=== PATIENT | female | born 1985 | race Two or more races ===

== ENCOUNTER 2021-05-09 01:43 | Emergency (ER) | payer OTHER ==
[2021-05-09 02:07] VITALS: BP 109/74; PULSE 66; RESP 17; TEMP 98.5
--- NOTE | 2021-05-09 02:31 | ED ---
Recheck HPI - General Chief Complaint: Recheck/Abnormal Lab/Rx Stated Complaint: Covid test Source: patient, RN notes reviewed, old records reviewed Mode of arrival: ambulatory Limitations: no limitations - History of Present Illness Initial Comments: This patient presents today for evaluation in regards with need for coronavirus testing. Patient needs coronavirus testing to return to [facility]. Patient presents patient's manic without complaint. No significant medical history MD Complaint: other (Coronavirus testing) -: minutes(s) Returns Today for: request for prescription Symptoms Since Prior Visit: no new symptoms Context: planned re-check Associated Symptoms: none Treatments Prior to Arrival: other (none) - Related Data Allergies Allergy/AdvReac Type Severity Reaction Status Date / Time No Known Allergies Allergy Verified 05/09/21 02:07 Review of Systems ROS Statement: Those systems with pertinent positive or pertinent negative responses have been documented in the HPI. ROS Other: All systems not noted in ROS Statement are negative. Past Medical History Past Medical History: No Reported History History of Any Multi-Drug Resistant Organisms: None Reported Past Surgical History: No Surgical Hx Reported Past Psychological History: No Psychological Hx Reported Smoking Status: Never smoker Past Alcohol Use History: None Reported Past Drug Use History: None Reported General Exam General appearance: alert, in no apparent distress Head exam: Present: atraumatic, normocephalic, normal inspection Eye exam: Present: normal appearance, PERRL, EOMI. Absent: scleral icterus, conjunctival injection, periorbital swelling ENT exam: Present: normal exam, mucous membranes moist Neck exam: Present: normal inspection. Absent: tenderness, meningismus, lymphadenopathy Respiratory exam: Present: normal lung sounds bilaterally. Absent: respiratory distress, wheezes, rales, rhonchi, stridor Cardiovascular Exam: Present: regular rate, normal rhythm, normal heart sounds. Absent: systolic murmur, diastolic murmur, rubs, gallop, clicks GI/Abdominal exam: Present: soft, normal bowel sounds. Absent: distended, tenderness, guarding, rebound, rigid Extremities exam: Present: normal inspection, full ROM, normal capillary refill. Absent: tenderness, pedal edema, joint swelling, calf tenderness Back exam: Present: normal inspection Neurological exam: Present: alert, oriented X3, CN II-XII intact Psychiatric exam: Present: normal affect, normal mood Skin exam: Present: warm, dry, intact, normal color. Absent: rash Course Vital Signs 05/09/21 02:04 Temperature 98.5 F Pulse Rate 66 Respiratory 17 Rate Blood Pressure 109/74 O2 Sat by Pulse 98 Oximetry - Reevaluation(s) Reevaluation #1: 05/09/21 Medical record is reviewed Patient is informed of results Medical Decision Making - Medical Decision Making 35 female to the emergency department for coronavirus testing. Patient testing is negative can be discharged home - Lab Data Lab Results 05/09/21 Range/Units 02:01 Coronavirus (PCR) Not Detected (Not Detectd) Disposition Clinical Impression: Normal exam Disposition: HOME SELF-CARE Condition: Good Instructions (If sedation given, give patient instructions): Normal Exam (ED) Is patient prescribed a controlled substance at d/c from ED?: No Referrals: None,Stated [Primary Care Provider] - 1-2 days
== END 2021-05-09 03:00 | disposition home or self-care (01) ==
LOC: EC 01:43
DX: Z20.822 Contact with and (suspected) exposure to COVID-19 (principal)
CPT/HCPCS: 87635; 99282